=== PATIENT | male | born 1950 | race Caucasian/White ===

== ENCOUNTER → 2019-07-03 11:19 | Outpatient (BNVA) | payer MEDICARE, MEDICAID, SELFPAY | PROVIDERS: Family Provider Nurse Practitioner; PCP Nurse Practitioner; Visit Provider Nurse Practitioner | DX: I10 Essential (primary) hypertension (principal); J43.9 Emphysema, unspecified; Z95.5 Presence of coronary angioplasty implant and graft; I25.10 Atherosclerotic heart disease of native coronary artery without angina pectoris; K21.9 Gastro-esophageal reflux disease without esophagitis; M50.30 Other cervical disc degeneration, unspecified cervical region | CPT/HCPCS: 80053; 80061; 83735; 85025 ==

== ENCOUNTER → 2019-11-10 11:54 | Outpatient (BNVA) | payer MEDICARE, MEDICAID, SELFPAY | PROVIDERS: Family Provider Nurse Practitioner; PCP Nurse Practitioner; Visit Provider Nurse Practitioner | DX: E78.5 Hyperlipidemia, unspecified (principal); I10 Essential (primary) hypertension; J43.9 Emphysema, unspecified; Z95.5 Presence of coronary angioplasty implant and graft; I25.10 Atherosclerotic heart disease of native coronary artery without angina pectoris; K21.9 Gastro-esophageal reflux disease without esophagitis; M50.30 Other cervical disc degeneration, unspecified cervical region; G25.81 Restless legs syndrome | CPT/HCPCS: 80053; 80061; 85025 ==

== ENCOUNTER → 2020-05-08 11:41 | Outpatient (BNVA) | payer MEDICARE, MEDICAID, SELFPAY | PROVIDERS: Family Provider Nurse Practitioner; PCP Nurse Practitioner; Visit Provider Nurse Practitioner | DX: I10 Essential (primary) hypertension (principal); J43.9 Emphysema, unspecified; Z95.5 Presence of coronary angioplasty implant and graft; I25.10 Atherosclerotic heart disease of native coronary artery without angina pectoris; K21.9 Gastro-esophageal reflux disease without esophagitis; M50.30 Other cervical disc degeneration, unspecified cervical region; J43.1 Panlobular emphysema; G25.81 Restless legs syndrome | CPT/HCPCS: 80053; 80061 ==

== ENCOUNTER → 2020-12-04 11:22 | Outpatient (BNVA) | payer MEDICARE, MEDICAID, SELFPAY | PROVIDERS: Family Provider Nurse Practitioner; PCP Nurse Practitioner; Visit Provider Nurse Practitioner | DX: Z12.5 Encounter for screening for malignant neoplasm of prostate (principal); G25.81 Restless legs syndrome; Z95.5 Presence of coronary angioplasty implant and graft; I10 Essential (primary) hypertension; J43.1 Panlobular emphysema; K21.9 Gastro-esophageal reflux disease without esophagitis; I25.10 Atherosclerotic heart disease of native coronary artery without angina pectoris; M50.30 Other cervical disc degeneration, unspecified cervical region; J43.9 Emphysema, unspecified | CPT/HCPCS: 80053; 80061; 85025; G0103 ==

== ENCOUNTER → 2021-05-16 11:04 | Outpatient (BNVA) | payer MEDICARE, MEDICAID, SELFPAY | PROVIDERS: Family Provider Nurse Practitioner; PCP Nurse Practitioner; Visit Provider Nurse Practitioner | DX: I10 Essential (primary) hypertension (principal) | CPT/HCPCS: 80053; 80061; 84443 ==

== ENCOUNTER 2021-07-02 08:40 | Outpatient (CLI) | payer MEDICARE, MEDICAID, SELFPAY ==
--- NOTE | 2021-07-02 08:30 | CT_ITS ---
WS: [id number] CT NECK TECHNIQUE: Contrast-enhanced CT of the neck with coronal and sagittal reformatted images. CLINICAL INFORMATION: J04.0 - Acute laryngitis COMPARISON: None. DLP: 291.[address] scans at [facility] use at least one of these dose optimization techniques: automated e xposure control; mA and/or kV adjustment per patient size (includes targeted exams where dose is matc hed to clinical indication); or iterative reconstruction. FINDINGS: Parotid glands are normal. Normal submandibular glands. Normal posterior nasopharynx. Normal paraphar yngeal fat. Mastoid air cells and paranasal sinuses are well aerated. Mild mucosal thickening ethmoid air cells. Partially visualized intracranial contents appear normal. Intracranial vascular calcifica tion. Normal posterior nasopharynx. No evidence of supraglottic or glottic mass. Normal subglottic ai rway. Small left thyroid nodule measuring 6 mm. Emphysematous changes in the lung apices. Scattered fibrosis in the lung apices. Noncalcified nodule right upper lobe measuring 3.5 mm. Moderate to advanced spondylitic changes cervical spine worse at C 4-C6. Mild central canal stenosis C5-6. Grade 1 anterolisthesis C7 on T1. Mild to moderate carotid bu lb calcification. CT/CT neck w con* [id number] IMPRESSION: 1. Normal salivary glands. 2. No cervical lymphadenopathy. 3. No evidence of supraglottic or glottic mass. Normal subglottic airway. 4. Normal glottis. 5. Small left thyroid nodule measuring 6 mm. 6. Small noncalcified nodule right upper lobe measuring 3.5 mm. Recommend 12 m [facility] chest CT follow-up. 7. Moderate spondylitic changes cervical spine with mild central canal stenosi s C5-6 due to disc osteophyte complex.
[2021-07-02] MEDS: iohexol 300 mg/mL 100 mL Btl IV (09:15)
== END 2021-07-02 08:41 | disposition home or self-care (01) ==
LOC: RAD 08:43
PROVIDERS: PCP Nurse Practitioner; Visit Provider Nurse Practitioner
DX: J04.0 Acute laryngitis (principal); E04.1 Nontoxic single thyroid nodule; R91.1 Solitary pulmonary nodule
CPT/HCPCS: 70491

== ENCOUNTER → 2021-11-07 11:31 | Outpatient (BNVA) | payer MEDICARE, MEDICAID, SELFPAY | PROVIDERS: PCP Nurse Practitioner; Visit Provider Nurse Practitioner | DX: I10 Essential (primary) hypertension (principal); J04.0 Acute laryngitis; J43.1 Panlobular emphysema; I25.10 Atherosclerotic heart disease of native coronary artery without angina pectoris; M50.30 Other cervical disc degeneration, unspecified cervical region; K21.9 Gastro-esophageal reflux disease without esophagitis; Z95.5 Presence of coronary angioplasty implant and graft; G25.81 Restless legs syndrome; I73.9 Peripheral vascular disease, unspecified | CPT/HCPCS: 80053; 80061; 85025 ==

== ENCOUNTER → 2022-01-28 09:36 | Outpatient (BNVA) | payer MEDICARE, MEDICAID, SELFPAY | PROVIDERS: PCP Nurse Practitioner; Visit Provider Nurse Practitioner | DX: J43.1 Panlobular emphysema (principal); I10 Essential (primary) hypertension; I25.10 Atherosclerotic heart disease of native coronary artery without angina pectoris; M50.30 Other cervical disc degeneration, unspecified cervical region; K21.9 Gastro-esophageal reflux disease without esophagitis; Z95.5 Presence of coronary angioplasty implant and graft; G25.81 Restless legs syndrome; I73.9 Peripheral vascular disease, unspecified; E78.5 Hyperlipidemia, unspecified | CPT/HCPCS: 73630 ==

== ENCOUNTER → 2022-04-28 12:00 | Outpatient (BNVA) | payer MEDICARE, MEDICAID, SELFPAY | PROVIDERS: PCP Nurse Practitioner; Visit Provider Nurse Practitioner | DX: I10 Essential (primary) hypertension (principal); J43.1 Panlobular emphysema; I25.10 Atherosclerotic heart disease of native coronary artery without angina pectoris; K21.9 Gastro-esophageal reflux disease without esophagitis; M50.30 Other cervical disc degeneration, unspecified cervical region; G25.81 Restless legs syndrome; Z95.5 Presence of coronary angioplasty implant and graft; I73.9 Peripheral vascular disease, unspecified | CPT/HCPCS: 80053; 80061 ==

== ENCOUNTER → 2022-11-05 10:31 | Outpatient (BNVA) | payer MEDICARE, MEDICAID, SELFPAY | PROVIDERS: PCP Nurse Practitioner; Visit Provider Nurse Practitioner | DX: I10 Essential (primary) hypertension (principal) | CPT/HCPCS: 80053; 80061; 84443 ==

== ENCOUNTER → 2023-01-28 10:19 | Outpatient (BNVA) | payer MEDICARE, MEDICAID, SELFPAY | PROVIDERS: PCP Nurse Practitioner; Visit Provider Nurse Practitioner | DX: I10 Essential (primary) hypertension (principal); R73.9 Hyperglycemia, unspecified | CPT/HCPCS: 80053; 83036 ==

== ENCOUNTER → 2023-04-22 10:01 | Outpatient (BNVA) | payer MEDICARE, MEDICAID, SELFPAY | PROVIDERS: PCP Nurse Practitioner; Visit Provider Nurse Practitioner | DX: I10 Essential (primary) hypertension (principal); J43.9 Emphysema, unspecified | CPT/HCPCS: 80053; 80061; 85025 ==

== ENCOUNTER → 2023-06-15 09:02 | Outpatient (BNVA) | payer MEDICARE, MEDICAID, SELFPAY | PROVIDERS: PCP Nurse Practitioner; Visit Provider Nurse Practitioner | DX: J44.9 Chronic obstructive pulmonary disease, unspecified (principal) | CPT/HCPCS: 82607; 82746; 83550 ==

== ENCOUNTER → 2023-08-05 09:44 | Outpatient (BNVA) | payer MEDICARE, MEDICAID, SELFPAY | PROVIDERS: PCP Nurse Practitioner; Visit Provider Nurse Practitioner | DX: D50.8 Other iron deficiency anemias (principal); E11.9 Type 2 diabetes mellitus without complications | CPT/HCPCS: 71046; 80053; 83036; 83540 ==

== ENCOUNTER 2023-08-12 08:09 | Outpatient (CLI) | payer MEDICARE, MEDICAID, SELFPAY ==
--- NOTE | 2023-08-12 08:00 | CT_ITS ---
WS: [id number] LDCT LUNG CANCER SCREENING TECHNIQUE: Noncontrast CT of the chest with coronal and sagittal reformatted images. CLINICAL INFORMATION: Z87.891 - Personal history of nicotine dependence COMPARISON: None. DLP: 66.01 mGy.cm DIvol: Mean CTDIvol: 1.20 (mGy) All CT scans at [facility] use at least one of these dose optimization techniques: automat ed exposure control; mA and/or kV adjustment per patient size (includes targeted exams where dose is matched to clinical indication); or iterative reconstruction. FINDINGS: Moderate to advanced chronic emphysematous changes. Patchy atelectasis in the LEFT lower lo be with subsegmental atelectasis in the lingula. Subsegmental atelectasis in the RIGHT middle lobe. Tiny calcified granulomas LEFT lower lobe. A few tiny subcentimeter pulmonary nodules largest in the RIGHT upper lobe near the fissure measuring 4.5 mm. Normal caliber thoracic aorta appear aortic calcification. Dense coronary calcification. Coronary stefan nts. No mediastinal or hilar lymphadenopathy. No axillary lymphadenopathy. LEFT adrenal adenoma measu ring 2.5 cm. Partially visualized renal cysts. Tiny esophageal hiatal hernia. Hypertrophic changes th oracic spine. IMPRESSION: CT/CT lung screening 12170 LUNG-RADS: 2-Benign Appearance or Behavior FOLLOW UP: 12 Month: Continue annual screening with LDCT
== END 2023-08-12 08:10 | disposition home or self-care (01) ==
LOC: RAD 08:10
PROVIDERS: PCP Nurse Practitioner; Visit Provider Nurse Practitioner
DX: Z12.2 Encounter for screening for malignant neoplasm of respiratory organs (principal); Z87.891 Personal history of nicotine dependence; J43.9 Emphysema, unspecified; J98.11 Atelectasis; R91.8 Other nonspecific abnormal finding of lung field
CPT/HCPCS: 71271

== ENCOUNTER → 2023-10-21 08:31 | Outpatient (BNVA) | payer MEDICARE, MEDICAID, SELFPAY | PROVIDERS: PCP Nurse Practitioner; Visit Provider Nurse Practitioner | DX: I25.10 Atherosclerotic heart disease of native coronary artery without angina pectoris (principal); Z95.5 Presence of coronary angioplasty implant and graft; J43.1 Panlobular emphysema; I10 Essential (primary) hypertension; M50.30 Other cervical disc degeneration, unspecified cervical region; K21.9 Gastro-esophageal reflux disease without esophagitis; G25.81 Restless legs syndrome; I73.9 Peripheral vascular disease, unspecified; E11.9 Type 2 diabetes mellitus without complications; H60.90 Unspecified otitis externa, unspecified ear; Z79.899 Other long term (current) drug therapy | CPT/HCPCS: 80053; 80061; 83036 ==

== ENCOUNTER → 2024-01-06 09:34 | Outpatient (BNVA) | payer MEDICARE, MEDICAID, SELFPAY | PROVIDERS: PCP Nurse Practitioner; Visit Provider Nurse Practitioner | DX: E11.9 Type 2 diabetes mellitus without complications (principal); I25.10 Atherosclerotic heart disease of native coronary artery without angina pectoris | CPT/HCPCS: 80053; 80061; 82607; 83036; 85025 ==

== ENCOUNTER → 2024-07-11 09:10 | Outpatient (BNVA) | payer MEDICARE, MEDICAID, SELFPAY | PROVIDERS: PCP Nurse Practitioner; Visit Provider Nurse Practitioner | DX: E11.9 Type 2 diabetes mellitus without complications (principal) | CPT/HCPCS: 80053; 80061; 83036 ==